=== PATIENT | female | born 1975 | race Caucasian/White ===

== ENCOUNTER 2018-05-14 20:01 | Emergency (ER) | payer OTHER ==
[~2018-05-14] VITALS: Ht 160 cm; Wt 86.2 kg
[2018-05-14] MEDS ORDERED: ASPIRIN 81 MG CHEW (CHILDREN'S ASA) ONE (20:07)
[2018-05-14] MEDS ORDERED: NS IV 1000 ML 1,000 ML ONE (20:11)
[2018-05-14] MEDS ORDERED: NS IV 1000 ML 1,000 ML IV ONE (20:12)
[2018-05-14] MEDS ORDERED: ANTACID SUSP 30 ML UDC (MYLANTA) PO ONE (20:15)
[2018-05-14] MEDS ORDERED: ASPIRIN 81 MG CHEW (CHILDREN'S ASA) PO ONE (20:15)
[2018-05-14] MEDS ORDERED: LIDOCAINE 2% VISCOUS 15 ML UDC PO ONE (20:15)
[2018-05-14] MEDS: NITROGLYCERIN 0.4 MG SL TABS BTL 25'S SL ONE ×2 (20:17→20:32)
[2018-05-14 20:22] LABS: BASOPHILS % (AUTO) 0 % (0-10); EOSINOPHILS % (AUTO) 0 % (0-10); HEMATOCRIT 37 % (35-52); HEMOGLOBIN 12.9 G/DL (11.5-16.0); LYMPHOCYTES # (AUTO) 2.2 X 10^3 (1.0-4.0); LYMPHOCYTES % (AUTO) 21 % (12-44); MEAN CORPUSCULAR HEMOGLOBIN 29 PG (25-34); MEAN CORPUSCULAR HGB CONC 35 G/DL (32-36); MEAN CORPUSCULAR VOLUME 83 FL (80-99); MEAN PLATELET VOLUME 9.6 FL (7.4-10.4); MONOCYTES # (AUTO) 0.5 X 10^3 (0.0-1.0); MONOCYTES % (AUTO) 5 % (0-12); NEUTROPHILS # (AUTO) 7.8 X 10^3 (1.8-7.8); NEUTROPHILS % (AUTO) 74 % (42-75); PLATELET COUNT 261 10^3/uL (130-400); RED BLOOD COUNT 4.46 10^6/uL (4.35-5.85); RED CELL DISTRIBUTION WIDTH 13.1 % (10.0-14.5); WHITE BLOOD COUNT 10.5 10^3/uL (4.3-11.0)
[2018-05-14 20:36] LABS: PROTHROMBIN TIME PATIENT 13.6 SEC (12.2-14.7)
--- NOTE | 2018-05-14 20:37 | Diagnostic Imaging Report ---
INDICATION: Chest pain Frontal chest obtained at 8:29 p.m. Heart and mediastinal silhouette are normal in appearance. There is no acute pulmonary infiltrate or pneumothorax or pleural fluid. There are two questionable small nodular density overlying the right lateral base, for which followup is recommended. IMPRESSION: No focal infiltrate or pneumothorax or pleural fluid. There are 2 small questionable nodular densities around the right lateral base, short-term followup is recommended. Dictated by: Dictated on workstation # [id number]
[2018-05-14 20:40] LABS: ALANINE AMINOTRANSFERASE 12 U/L (0-55); ALBUMIN 4.1 GM/DL (3.2-4.5); ALKALINE PHOSPHATASE 72 U/L (40-136); BILIRUBIN,TOTAL 0.4 MG/DL (0.1-1.0); BUN/CREATININE RATIO 18; CALCIUM 8.9 MG/DL (8.5-10.1); CARBON DIOXIDE 24 MMOL/L (21-32); CHLORIDE 104 MMOL/L (98-107); CREATININE SERUM 0.84 MG/DL (0.60-1.30); GFR ESTIMATED > 60; GLUCOSE 92 MG/DL (70-105); MAGNESIUM 2.1 MG/DL (1.8-2.4); POTASSIUM 3.8 MMOL/L (3.6-5.0); SODIUM 138 MMOL/L (135-145); TOTAL PROTEIN 7.8 GM/DL (6.4-8.2)
--- NOTE | 2018-05-14 20:50 | ED Chest Pain ---
General Chief Complaint: Chest Pain Stated Complaint: CHEST PAIN Nursing Triage Note: pt presents to er with complaint of chest pain. states she has had ten epsidoes of stabbing pain to her chest since 1630. states she was at work when pain started. Nursing Sepsis Screen: No Definite Risk Source: patient Exam Limitations: no limitations History of Present Illness Date Seen by Provider: May 14, 2018 Time Seen by Provider: 20:04 Initial Comments Here with report of chest pain that has occurred about 10 times since 430 p.m. States they are sharp and intense when that happened and there on the left side. There are laceration a few seconds and then go away. She's had this occasionally before but never as many times in a row. She was worried about heart problems. Her father did have a heart attack in his 40s and ultimately in his 50s of a heart attack. Has not had a heart workup previously. 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 Timing/Duration: intermittent, gone now Severity/Quality: moderate, severe, sharp Location: central Radiation: no radiation Activities at Onset: none Prior CP/Workup: no prior cardiac workup ASA po DIGITAL ASSISTANT: No NTG SL DIGITAL ASSISTANT: No Associated Symptoms: No abdominal pain, No back pain, No diaphoresis, No fever/ chills, No nausea/vomiting, No shortness of breath, No weakness Allergies and Home Medications Allergies Coded Allergies: Sulfa (Sulfonamide Antibiotics) (Verified Allergy, Unknown, 05/14/18) Patient Home Medication List Home Medication List Reviewed: Yes Review of Systems Constitutional: see HPI EENTM: No Symptoms Reported Respiratory: See HPI; Denies Cough, Denies SOA With Exertion, Denies SOA at Rest Cardiovascular: See HPI; Denies Irregular Heart Rate, Denies Lightheadedness Gastrointestinal: No Symptoms Reported Genitourinary: No Symptoms Reported Musculoskeletal: see HPI, muscle pain; No muscle stiffness, No muscle cramps Skin: no symptoms reported All Other Systems Reviewed Negative Unless Noted: Yes Past Wryvzmu-Vbrqev-Lobhwi Hx Past Med/Social Hx: Reviewed Nursing Past Med/Soc Hx Patient Social History Alcohol Use: Denies Use Recreational Drug Use: No Smoking Status: Never a Smoker Recent Foreign Travel: No Contact w/Someone Who Travel: No Recent Infectious Disease Expo: No Recent Hopitalizations: No Immunizations Up To Date Tetanus Booster (TDap): Unknown PED Vaccines UTD: Yes Seasonal Allergies Seasonal Allergies: No Past Medical History Surgeries: Yes Abdominal Respiratory: No Cardiac: No Neurological: No Genitourinary: No Gastrointestinal: Yes Abdominal Hernia Musculoskeletal: No Endocrine: No HEENT: No Cancer: No Psychosocial: No Integumentary: No Blood Disorders: No Family Medical History Reviewed Nursing Family Hx CAD Under 55 Years Old Physical Exam Vital Signs Vital Signs - First Documented 05/14/18 20:02 Pulse 102 Resp 16 B/P (MAP) 180/83 (115) Pulse Ox 98 O2 Delivery Room Air Capillary Refill : Less Than 3 Seconds Height, Weight, BMI Height: 5', 3.00" Weight: 190lbs oz, 86.719254st Method:Stated ,BMI General Appearance: No Apparent Distress, WD/WN HEENT: PERRL/EOMI, Pharynx Normal Neck: Non Tender, Supple Respiratory: Lungs Clear, Normal Breath Sounds Cardiovascular: Regular Rate, Rhythm, No Murmur Gastrointestinal: Non Tender, Soft Extremity: Normal Range of Motion, Non Tender Neurologic/Psychiatric: Alert, Oriented x3 Skin: Normal Color, Warm/Dry Progress/Results/Core Measures Results/Orders Lab Results Laboratory Tests Test 05/14/18 20:09 05/14/18 22:05 Range/Units White Blood Count 10.5 4.3-11.0 10^3/uL Red Blood Count 4.46 4.35-5.85 10^6/uL Hemoglobin 12.9 11.5-16.0 G/DL Hematocrit 37 35-52 % Mean Corpuscular Volume 83 80-99 FL Mean Corpuscular Hemoglobin 29 25-34 PG Mean Corpuscular Hemoglobin Concent 35 32-36 G/DL Red Cell Distribution Width 13.1 10.0-14.5 % Platelet Count 261 130-400 10^3/uL Mean Platelet Volume 9.6 7.4-10.4 FL Neutrophils (%) (Auto) 74 42-75 % Lymphocytes (%) (Auto) 21 12-44 % Monocytes (%) (Auto) 5 0-12 % Eosinophils (%) (Auto) 0 0-10 % Basophils (%) (Auto) 0 0-10 % Neutrophils # (Auto) 7.8 1.8-7.8 X 10^3 Lymphocytes # (Auto) 2.2 1.0-4.0 X 10^3 Monocytes # (Auto) 0.5 0.0-1.0 X 10^3 Eosinophils # (Auto) 0.0 0.0-0.3 10^3/uL Basophils # (Auto) 0.0 0.0-0.1 10^3/uL Prothrombin Time 13.6 12.2-14.7 SEC INR Comment 1.0 0.8-1.4 Activated Partial Thromboplast Time 30 24-35 SEC D-Dimer 0.34 0.00-0.49 UG/ML Sodium Level 138 135-145 MMOL/L Potassium Level 3.8 3.6-5.0 MMOL/L Chloride Level 104 98-107 MMOL/L Carbon Dioxide Level 24 21-32 MMOL/L Anion Gap 10 5-14 MMOL/L Blood Urea Nitrogen 15 7-18 MG/DL Creatinine 0.84 0.60-1.30 MG/DL Estimat Glomerular Filtration Rate > 60 BUN/Creatinine Ratio 18 Glucose Level 92 70-105 MG/DL Calcium Level 8.9 8.5-10.1 MG/DL Magnesium Level 2.1 1.8-2.4 MG/DL Total Bilirubin 0.4 0.1-1.0 MG/DL Aspartate Amino Transf (AST/SGOT) 16 5-34 U/L Alanine Aminotransferase (ALT/SGPT) 12 0-55 U/L Alkaline Phosphatase 72 40-136 U/L Myoglobin 45.5 10.0-92.0 NG/ML Troponin I < 0.30 < 0.30 <0.30 NG/ML Total Protein 7.8 6.4-8.2 GM/DL Albumin 4.1 3.2-4.5 GM/DL Thyroid Stimulating Hormone (TSH) 4.07 0.35-4.94 UIU/ML My Orders Orders - ANGEL VILLATORO MD Nitroglycerin 0.4 Mg Btl 25's (Nitrostat (05/14/18 20:07) Aspirin Chewable Tablet (Baby Aspirin Ch (05/14/18 20:07) Cbc With Automated Diff (05/14/18 20:12) Magnesium (05/14/18 20:12) Chest 1 View, Ap/Pa Only (05/14/18 20:12) Ekg Tracing (05/14/18 20:12) Cardiac Profile 1 (05/14/18 20:12) Comprehensive Metabolic Panel (05/14/18 20:12) Myoglobin Serum (05/14/18 20:12) Protime With Inr (05/14/18 20:12) Partial Thromboplastin Time (05/14/18 20:12) O2 (05/14/18 20:12) Monitor-Rhythm Ecg Trace Only (05/14/18 20:12) Lipid Panel (05/15/18 06:00) Aspirin Chewable Tablet (Baby Aspirin Ch (05/14/18 20:15) Saline Lock/Iv-Start (05/14/18 20:12) Fibrin Degradation Products (05/14/18 20:12) Saline Lock/Iv-Start (05/14/18 20:12) Ns Iv 1000 Ml (Sodium Chloride 0.9%) (05/14/18 20:12) Thyroid Stimulating Hormone (05/14/18 20:12) Ns Iv 1000 Ml (Sodium Chloride 0.9%) (05/14/18 20:11) Lidocaine 2% Viscous 15 Ml (Xylocaine Vi (05/14/18 20:15) Antacid Suspension (Mylanta Suspension (05/14/18 20:15) Chest Pa/Lat (2 View) (05/14/18 21:23) Troponin I (05/14/18 22:00) Ekg Tracing (05/14/18 22:00) Medications Given in ED Current Medications Medications Dose Ordered Sig/Va Route Start Time Stop Time Status Last Admin Dose Admin Al Hydrox/Mg Hydrox/Simethicone 30 ml ONCE ONCE PO 05/14/18 20:15 05/14/18 20:16 DC 05/14/18 20:23 30 ML Aspirin 324 mg ONCE ONCE PO 05/14/18 20:15 05/14/18 20:16 DC 05/14/18 20:16 324 MG Lidocaine HCl 15 ml ONCE ONCE PO 05/14/18 20:15 05/14/18 20:16 DC 05/14/18 20:23 15 ML Sodium Chloride 1,000 ml @ 0 mls/hr Q0M ONCE IV 05/14/18 20:12 05/14/18 20:15 DC 05/14/18 20:16 0 MLS/HR Vital Signs/I&O 05/14/18 20:02 Pulse 102 Resp 16 B/P (MAP) 180/83 (115) Pulse Ox 98 O2 Delivery Room Air Blood Pressure Mean: 115 Progress Progress Note : Progress Note Seen and evaluated. IV, labs, EKG and chest x-ray ordered. ASA 324 mg by mouth ordered. GI cocktail ordered. Normal saline 1 L bolus. No nitros patient is currently chest pain-free. Monitor patient. 2205: Remains pain free. Repeat troponin and EKG ordered. We have repeated the chest x-ray due to the earlier findings. There was question about possible outside source for the nodules. This remains on the two-view chest x-ray. She will need outpatient follow-up for this and I will send a copy of the chart to the clinic. Patient reports that she has different providers at their so we will send it to Dr. Aviles just so it could be placed in her chart. There is now a good two-view chest x-ray for comparison. Monitor patient. 2220: Remains chest pain-free. Troponin pending. I discussed with the patient about the pulmonary nodules. She will need follow-up for this and patient understands. Patient will also need follow-up for cardiology evaluation and patient understands that as well. She will call the clinic in the morning. 2235: Blood pressure 143/75 and patient remains chest pain-free. Discharged home with return precautions. Patient verbalize understanding instructions and agreement with plan. Initial ECG Impression Date: May 14, 2018 Initial ECG Impression Time: 20:02 Initial ECG Rate: 94 Initial ECG Rhythm: S.Tach Initial ECG Impression: Normal Initial ECG Comparisson: No Previous ECG Available Comment Sinus to sinus tachycardia with normal axis. No evidence of ST elevation TN. No previous available for comparison. Interpreted by me. EKG : EKG Time: 22:10 Rate: 79 Rhythm: Normal Sinus ECG Impression: Normal Comment Normal sinus rhythm with normal axis. No evidence of ST elevation TN. Rate improved from earlier today but morphology otherwise the same. Interpreted by me. Diagnostic Imaging Diagonstic Imaging: Xray Plain Films/CT/US/NM/MRI: chest Comments NAME: G[facility]INO [facility]EE [facility] REC#: [id number] PT STATUS: REG ER : 1975 PHYSICIAN: ANGEL VILLATORO MD ADMIT DATE: 05/14/18/ER Draft Date of Exam:05/14/18 CHEST 1 VIEW, AP/PA ONLY INDICATION: Chest pain Frontal chest obtained at 8:29 p.m. Heart and mediastinal silhouette are normal in appearance. There is no acute pulmonary infiltrate or pneumothorax or pleural fluid. There are two questionable small nodular density overlying the right lateral base, for which followup is recommended. IMPRESSION: No focal infiltrate or pneumothorax or pleural fluid. There are 2 small questionable nodular densities around the right lateral base, short-term followup is recommended. Dictated on workstation # [id number] Dict: 05/14/182030 Trans: 05/14/182036 SHERLY [id number] Interpreted by: SYLVESTER GARVIN MD Electronically signed by: Yang Imaging: Xray Plain Films/CT/US/NM/MRI: chest Comments NAME: G[facility]INO [facility]EE [facility] REC#: [id number] PT STATUS: REG ER : 1975 PHYSICIAN: ANGEL VILLATORO MD ADMIT DATE: 05/14/18/ER Signed Date of Exam: 05/14/18 CHEST PA/LAT (2 VIEW) INDICATION: Chest pain PA and lateral chest obtained at 1002 PM and compared to 05/14/18 at 8:29 p.m. Heart and mediastinal silhouette are normal in appearance. The lungs show no consolidation. There is no pneumothorax or pleural fluid. Two ill-defined nodular densities over the right base are noted which appears similar to the previous study. IMPRESSION: There are two ill-defined nodular densities overlying the right lung base which are similar to the portable study. There is no consolidation or pleural fluid or pneumothorax. Consider followup chest CT or followup chest x-ray in 3 months as clinically warranted. Dictated by: Dictated on workstation # [id number] Dict: 05/14/182155 Trans: 05/14/182206 Interpreted by: SYLVESTER GARVIN MD Electronically signed by: SYLVESTER GARVIN MD 05/14/182206 Reviewed: Reviewed by Me Departure Impression Primary Impression: Chest pain Qualified Codes: R07.9 - Chest pain, unspecified Additional Impression: Multiple pulmonary nodules Disposition: 01 HOME, SELF-CARE Condition: Stable Departure-Patient Inst. Referrals: MARKELL AVILES DO (PCP) Primary Care Physician TARUN MCDANIEL APRN (Family) Primary Care Physician Everett GOOD MD Patient Instructions: Chest Pain (DC), Single Pulmonary Nodule Add. Discharge Instructions: All discharge instructions reviewed with patient and/or family. Voiced understanding. He actually had 2 small pulmonary nodules in the base of the right lung. You will need follow-up for this. Call the clinic in the morning for recheck. You will also need follow-up with cardiology. You may call and get appointment with the cardiology listed or you can follow-up with the clinic for further cardiac evaluation and cardiology referral is indicated. Drink plenty of fluids. Return for worse pain, fever, vomiting, weakness, breathing problems, sweating associated with chest pain or other concerns as needed. Copy Copies To 1: MARKELL AVILES TIMOTHY D MD May 14, 2018 20:50
[2018-05-14 21:00] LABS: MYOGLOBIN SERUM 45.5 NG/ML (10.0-92.0)
--- NOTE | 2018-05-14 22:04 | Diagnostic Imaging Report ---
INDICATION: Chest pain PA and lateral chest obtained at 1002 PM and compared to 05/14/18 at 8:29 p.m. Heart and mediastinal silhouette are normal in appearance. The lungs show no consolidation. There is no pneumothorax or pleural fluid. Two ill-defined nodular densities over the right base are noted which appears similar to the previous study. IMPRESSION: There are two ill-defined nodular densities overlying the right lung base which are similar to the portable study. There is no consolidation or pleural fluid or pneumothorax. Consider followup chest CT or followup chest x-ray in 3 months as clinically warranted. Dictated by: Dictated on workstation # [id number]
[2018-05-14 22:56] VITALS: BP 137/71
== END 2018-05-14 22:56 | disposition home or self-care (01) ==
LOC: EDUNIT# 20:01 → ER 20:02
DX: R07.89 Other chest pain (principal); R91.8 Other nonspecific abnormal finding of lung field; Z88.2 Allergy status to sulfonamides; Z98.890 Other specified postprocedural states
CPT/HCPCS: 36415; 71045; 71046; 80053; 83735; 83874; 84443; 84484; 85025; 85379; 85610; 85730; 93005; 93041; 96360

== ENCOUNTER → 2018-08-21 | Outpatient (CLI) | payer OTHER ==
[~2018-08-21] MED LIST: IOHEXOL 350 MG/ML 100 ML (OMNIPAQUE 350) VIAL IV ONE; NS 250 ML (IVPB) BAG IV ONE
--- NOTE | 2018-08-21 09:47 | Diagnostic Imaging Report ---
PROCEDURE: CT chest with contrast only. TECHNIQUE: Multiple contiguous axial images were obtained through the chest after administration of intravenous contrast. INDICATION: Pulmonary nodules. The study is performed for further evaluation. COMPARISON: No prior CT chest is available. Comparison is made with prior chest radiograph from 05/14/2018. FINDINGS: No axillary lymphadenopathy is detected. No hilar or mediastinal lymphadenopathy is detected. No pericardial or pleural fluid is identified. The central airways are patent. There are three nodules identified in the right lower lobe. Two nodules are adjacent to the major fissure, image 27. The more medial nodule does appear to be partially calcified. This nodule measures approximately 7 mm. Nodule just lateral to this measures 7 mm. Slightly inferior and lateral is a smaller nodule measuring 5 mm. There may be tiny nodules more inferiorly in the right costophrenic angle as well. Left lung is unremarkable. Upper lobes are unremarkable. Upper abdomen does show a large gallstone within the gallbladder. IMPRESSION: 1. Right lower lobe pulmonary nodules, likely accounting for the chest radiographic abnormality. One nodule does appear to be partially calcified and suggestive of a granuloma. These are most likely benign. The two other noncalcified nodules may represent noncalcified granulomas. Followup CT chest in six months is recommended to confirm stability. 2. Cholelithiasis. Dictated by: Dictated on workstation # [id number]
== END ==
LOC: RAD 08:49
PROVIDERS: ATTEND Physician Assistant
DX: K80.20 Calculus of gallbladder without cholecystitis without obstruction (principal); R91.8 Other nonspecific abnormal finding of lung field
CPT/HCPCS: 71260